=== PATIENT | male | born 1995 | race Caucasian/White ===

== ENCOUNTER 2017-11-29 20:58 | Emergency (ER) | payer MEDICAID, OTHER ==
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
[2017-11-29] MEDS: Ketorolac 60 MG/2 ML SDV IM ONE (21:16)
[2017-11-29] MEDS: Acetaminophen/HYDROcodone 325-5 MG Tab PO ONE (23:19)
== END 2017-11-29 23:30 | disposition home or self-care (01) ==
LOC: KA.ED 20:58
DX: S20.211A Contusion of right front wall of thorax, initial encounter (principal); S00.93XA Contusion of unspecified part of head, initial encounter; V87.7XXA Person injured in collision between other specified motor vehicles (traffic), initial encounter
CPT/HCPCS: 70450; 71101-RT; 96372; 99284; A9270-GY; J1885